=== PATIENT | male | born 1980 | race Caucasian/White ===

== ENCOUNTER 2018-08-13 11:15 | Emergency (ER) | payer MEDICAID | END 2018-08-13 13:08 | disposition home or self-care (01) | LOC: FTE 11:15 | DX: T88.3XXA Malignant hyperthermia due to anesthesia, initial encounter (principal); E11.9 Type 2 diabetes mellitus without complications; R05 Cough; Y82.9 Unspecified medical devices associated with adverse incidents | CPT/HCPCS: 99283; Z7502 ==